=== PATIENT | male | born 1985 | race American Indian/Alaskan Native ===

== ENCOUNTER 2017-07-29 07:28 | Outpatient (CLI) | payer OTHER ==
[2017-07-29] MEDS ORDERED: NACL ONE (08:13)
--- NOTE | 2017-07-29 08:48 | Cat Scan Report ---
CT CERVICAL SPINE WITHOUT CONTRAST INDICATION: Fracture of neck. COMPARISON: None similar. FINDINGS: Noncontrast axial, sagittal and coronal CT reconstructions of the cervical spine demonstrate normal visualized intracranial appearance. Streak artifact from few radiopaque dental materials noted. Assessment of the spinal canal from C7-T1 inferiorly also compromised due to artifact from shoulder soft tissues. Slight left sphenoid sinusitis. Clear imaged mastoid air cells. Symmetric occipital condyles. Normal anterior and posterior arches of C1. Intact craniocervical articulation with normal predental space, prevertebral soft tissues, vertebral body stature, alignment, disc heights and posterior elements except for slight wedging/superior end plate irregularities involving C5 and C6 with mild degenerative spurring anteriorly. No large disc protrusion at any level suspected. Normal included thyroid. Few biapical peripheral bullae. CONCLUSION: No acute cervical spine CT abnormality with various incidental findings, as above. Please correlate. Thank you for the opportunity to participate in this patient's care.
== END 2017-07-29 07:29 | disposition home or self-care (01) ==
LOC: CT 07:28
PROVIDERS: ATTEND Student in an Organized Health Care Education/Training Program
DX: M53.82 Other specified dorsopathies, cervical region (principal); J32.3 Chronic sphenoidal sinusitis
CPT/HCPCS: 72125

== ENCOUNTER 2021-02-21 09:18 | Emergency (ER) | payer SELFPAY ==
[2021-02-21] MEDS ORDERED: predniSONE 20 MG TAB PO ONE (10:21)
[2021-02-21] MEDS ORDERED: IPRATROPIUM/ALBUTEROL SULFATE 3 ML AMPUL.NEB IH ONE (10:21)
--- NOTE | 2021-02-21 10:22 | Emergency Department Report ---
ED General Adult HPI - General Chief complaint: Upper Respiratory Infection Stated complaint: CHEST PAIN, COUGH, FEVER Time Seen by Provider: 02/21/21 10:03 Source: patient Mode of arrival: Ambulatory Limitations: No Limitations - History of Present Illness Initial comments: 89-year-old -[place] male patient presents with complaints of cough x2 days. He states he had a tactile fever at home. He states his cough is productive of yellow sputum and denies any hemoptysis. He states pain in his chest with coughing only, and denies any shortness of breath, loss of taste or smell, headache, or recent known sick contacts. He denies having the COVID-19 vaccination. He admits to being a chronic cigarette smoker. No past medical history per patient. - Related Data Previous Rx's Medication Instructions Recorded Last Taken Type Albuterol Mdi (or & Nicu Only) 2 puff IH QID PRN #1 inhalation 04/01/13 Unknown Rx [ProAir HFA Inhaler] Hycodan 5 ml PO Q4H PRN #120 ml 04/01/13 Unknown Rx Albuterol Mdi (or & Nicu Only) 2 puff IH Q4H PRN #8.5 gram 02/21/21 Unknown Rx [ProAir HFA Inhaler] Azithromycin [Zithromax Z-VASHTI] 0 mg PO DAILY #6 tab 02/21/21 Unknown Rx Prednisone [predniSONE 10 mg 10 mg PO .TAPER #1 tab.ds.pk 02/21/21 Unknown Rx (6-Day Pack, 21 Tabs)] Allergies Allergy/AdvReac Type Severity Reaction Status Date / Time No Known Allergies Allergy Verified 02/21/21 09:23 ED Review of Systems ROS: Stated complaint: CHEST PAIN, COUGH, FEVER Other details as noted in HPI Constitutional: fever (tactile ), malaise. denies: chills, diaphoresis, weakness Respiratory: cough. denies: shortness of breath Cardiovascular: as per HPI Gastrointestinal: denies: nausea, vomiting Skin: denies: rash, change in color Neurological: denies: headache ED Past Medical Hx - Past Medical History Previous Medical History?: No - Surgical History Past Surgical History?: No - Social History Smoking Status: Current Every Day Smoker Substance Use Type: None - Medications Home Medications: Home Medications Medication Instructions Recorded Confirmed Last Taken Type Albuterol Mdi (or & Nicu Only) 2 puff IH QID PRN #1 inhalation 04/01/13 02/21/21 Unknown Rx [ProAir HFA Inhaler] Hycodan 5 ml PO Q4H PRN #120 ml 04/01/13 02/21/21 Unknown Rx Albuterol Mdi (or & Nicu Only) 2 puff IH Q4H PRN #8.5 gram 02/21/21 Unknown Rx [ProAir HFA Inhaler] Azithromycin [Zithromax Z-VASHTI] 0 mg PO DAILY #6 tab 02/21/21 Unknown Rx Prednisone [predniSONE 10 mg 10 mg PO .TAPER #1 tab.ds.pk 02/21/21 Unknown Rx (6-Day Pack, 21 Tabs)] ED Physical Exam - General Limitations: No Limitations General appearance: alert, in no apparent distress - Head Head exam: Present: atraumatic, normocephalic - Eye Eye exam: Present: normal appearance - ENT ENT exam: Present: mucous membranes moist - Respiratory Respiratory exam: Present: wheezes (diffuse), rhonchi. Absent: respiratory distress, rales, stridor, chest wall tenderness, accessory muscle use - Cardiovascular Cardiovascular Exam: Present: regular rate, normal rhythm. Absent: systolic murmur, diastolic murmur, rubs, gallop - Neurological Exam Neurological exam: Present: alert, oriented X3 - Psychiatric Psychiatric exam: Present: normal affect, normal mood - Skin Skin exam: Present: warm, dry, intact, normal color. Absent: rash ED Course Vital Signs 02/21/21 02/21/21 02/21/21 09:32 10:35 11:11 Temperature 98.7 F 98.7 F Pulse Rate 84 Respiratory 18 20 Rate Blood Pressure 131/70 O2 Sat by Pulse 99 96 Oximetry ED Medical Decision Making - Radiology Data Radiology results: report reviewed CHEST 2 VIEWS INDICATION / CLINICAL INFORMATION: cough. COMPARISON: 04/01/2013 FINDINGS: SUPPORT DEVICES: None. HEART / MEDIASTINUM: No significant abnormality. LUNGS / PLEURA: No significant pulmonary or pleural abnormality. No pneumothorax. ADDITIONAL FINDINGS: No significant additional findings. IMPRESSION: 1. No acute findings. - Medical Decision Making 89-year-old -[place] male patient presents with complaints of cough x2 days. He states he had a tactile fever at home. He states his cough is productive of yellow sputum and denies any hemoptysis. He states pain in his chest with coughing only, and denies any shortness of breath, loss of taste or smell, headache, or recent known sick contacts. He denies having the COVID-19 vaccination. He admits to being a chronic cigarette smoker. No past medical history per patient. Diffuse wheezing noted on exam with mild rhonchi. Chest x-ray is normal. Pulse ox is normal and patient is nontachycardic. Wheezing improved with DuoNeb given here in ED. Patient states decreased chest tightness noted post neb treatment. Will treat for acute bronchitis. Recommend follow-up with primary care in 3 to 5 days. Patient encouraged to discontinue smoking. Also recommend outpatient COVID-19 testing. Strict return precautions were discussed in detail with patient who verbalized understanding. Critical care attestation.: If time is entered above; I have spent that time in minutes in the direct care of this critically ill patient, excluding procedure time. ED Disposition Clinical Impression: Acute bronchitis Disposition: HOME / SELF CARE / HOMELESS Is pt being admited?: No Condition: Stable Instructions: Acute Bronchitis (ED), Acute Bronchitis, Adult Prescriptions: Prednisone [predniSONE 10 mg (6-Day Pack, 21 Tabs)] 10 mg PO .TAPER #1 tab.ds.pk Albuterol Mdi (or & Nicu Only) [ProAir HFA Inhaler] 2 puff IH Q4H PRN #8.5 gram PRN Reason: Shortness Of Breath Azithromycin [Zithromax Z-VASHTI] 0 mg PO DAILY #6 tab Referrals: PRIMARY CARE, [Primary Care Provider] - 3-5 Days [facility] [Provider Group] - 3-5 Days Forms: Work/School Release Form(ED)
[2021-02-21] MEDS ORDERED: ALBUTEROL 2.5 MG/3 ML NEBU IH ONE (10:43)
--- NOTE | 2021-02-21 10:43 | XRay Report ---
CHEST 2 VIEWS INDICATION / CLINICAL INFORMATION: cough. COMPARISON: 04/01/2013 FINDINGS: SUPPORT DEVICES: None. HEART / MEDIASTINUM: No significant abnormality. LUNGS / PLEURA: No significant pulmonary or pleural abnormality. No pneumothorax. ADDITIONAL FINDINGS: No significant additional findings. IMPRESSION: 1. No acute findings. Signer Name: Kvng Knutson MD Signed: 02/21/2021 10:39 AM Workstation Name: [id number]
--- NOTE | 2021-02-21 11:58 | Electrocardiograph Report ---
[facility] Test Date: 2021-02-21 Test Time: 09:27:30 Pat Name: ELIZABETH SKAGGS Department: Room: Gender: M Wound Care Coordinator: YI : 1985 Requested By: ED DOC Order Number: [id number] Reading MD: Jose Maria Emerson Measurements Intervals [place] Rate: 75 P: 64 MT: 92 QRS: 83 QRSD: 90 T: 69 QT: 357 QTc: 398 Interpretive Statements Sinus rhythm ST elev, probable normal early repol pattern No previous ECG available for comparison Electronically Signed On 02-21-2021 11:57:49 EDT by Jose Maria Emerson
[2021-02-21 12:01] VITALS: BP 132/69
== END 2021-02-21 12:03 | disposition home or self-care (01) ==
LOC: ED 09:18
DX: J20.9 Acute bronchitis, unspecified (principal); F17.200 Nicotine dependence, unspecified, uncomplicated; Z79.899 Other long term (current) drug therapy
CPT/HCPCS: 71046; 93005; 94640; 99283; J7512

== ENCOUNTER 2021-11-25 19:45 | Emergency (ER) | payer SELFPAY ==
--- NOTE | 2021-11-26 04:11 | Emergency Department Report ---
- General Chief complaint: Skin/Abscess/Foreign Body Stated complaint: FB IN EAR/PAINFUL Time Seen by Provider: 11/26/21 03:52 Source: patient Mode of arrival: Ambulatory Limitations: No Limitations - History of Present Illness -: Gradual Tetanus Up to Date: yes Severity: mild Quality: dull Consistency: constant Improves with: none Worsens with: none - Related Data Previous Rx's Medication Instructions Recorded Last Taken Type Albuterol Mdi (or & Nicu Only) 2 puff IH QID PRN #1 inhalation 04/01/13 Unknown Rx [ProAir HFA Inhaler] Hycodan 5 ml PO Q4H PRN #120 ml 04/01/13 Unknown Rx Albuterol Mdi (or & Nicu Only) 2 puff IH Q4H PRN #8.5 gram 02/21/21 Unknown Rx [ProAir HFA Inhaler] Azithromycin [Zithromax Z-VASHTI] 0 mg PO DAILY #6 tab 02/21/21 Unknown Rx Prednisone [predniSONE 10 mg 10 mg PO .TAPER #1 tab.ds.pk 02/21/21 Unknown Rx (6-Day Pack, 21 Tabs)] Allergies Allergy/AdvReac Type Severity Reaction Status Date / Time No Known Allergies Allergy Verified 02/21/21 09:23 Abscess Boil HPI - HPI Chief Complaint: Skin/Abscess/Foreign Body Stated Complaint: FB IN EAR/PAINFUL Time Seen by Provider: 11/26/21 03:52 Duration: 1 Day Location: Other (left ear. Earbud pushed in ear and he is unable to retreive) Severity: Mild Home Medications: Previous Rx's Medication Instructions Recorded Last Taken Type Albuterol Mdi (or & Nicu Only) 2 puff IH QID PRN #1 inhalation 04/01/13 Unknown Rx [ProAir HFA Inhaler] Hycodan 5 ml PO Q4H PRN #120 ml 04/01/13 Unknown Rx Albuterol Mdi (or & Nicu Only) 2 puff IH Q4H PRN #8.5 gram 02/21/21 Unknown Rx [ProAir HFA Inhaler] Azithromycin [Zithromax Z-VASHTI] 0 mg PO DAILY #6 tab 02/21/21 Unknown Rx Prednisone [predniSONE 10 mg 10 mg PO .TAPER #1 tab.ds.pk 02/21/21 Unknown Rx (6-Day Pack, 21 Tabs)] Allergies/Adverse Reactions: Allergies Allergy/AdvReac Type Severity Reaction Status Date / Time No Known Allergies Allergy Verified 02/21/21 09:23 ED Review of Systems ROS: Stated complaint: FB IN EAR/PAINFUL Other details as noted in HPI Comment: All other systems reviewed and negative ED Past Medical Hx - Social History Smoking Status: Current Every Day Smoker Substance Use Type: None - Medications Home Medications: Home Medications Medication Instructions Recorded Confirmed Last Taken Type Albuterol Mdi (or & Nicu Only) 2 puff IH QID PRN #1 inhalation 04/01/13 02/21/21 Unknown Rx [ProAir HFA Inhaler] Hycodan 5 ml PO Q4H PRN #120 ml 04/01/13 02/21/21 Unknown Rx Albuterol Mdi (or & Nicu Only) 2 puff IH Q4H PRN #8.5 gram 02/21/21 Unknown Rx [ProAir HFA Inhaler] Azithromycin [Zithromax Z-VASHTI] 0 mg PO DAILY #6 tab 02/21/21 Unknown Rx Prednisone [predniSONE 10 mg 10 mg PO .TAPER #1 tab.ds.pk 02/21/21 Unknown Rx (6-Day Pack, 21 Tabs)] ED Physical Exam - General Limitations: No Limitations General appearance: alert, in no apparent distress - Head Head exam: Present: atraumatic, normocephalic - Eye Eye exam: Present: normal appearance, PERRL, EOMI Pupils: Present: normal accommodation - ENT ENT exam: Present: normal exam, mucous membranes moist, TM's normal bilaterally, other (FB to left ear canal with no edema. no mastoid tenderness. no bleeeding or discoloration. ) - Neck Neck exam: Present: normal inspection, full ROM - Respiratory Respiratory exam: Present: normal lung sounds bilaterally. Absent: respiratory distress, wheezes, rales, rhonchi, chest wall tenderness - Cardiovascular Cardiovascular Exam: Present: regular rate, normal rhythm. Absent: systolic murmur, diastolic murmur, rubs, gallop - GI/Abdominal GI/Abdominal exam: Present: soft, normal bowel sounds - Rectal Rectal exam: Present: deferred - Extremities Exam Extremities exam: Present: normal inspection - Back Exam Back exam: Present: normal inspection - Neurological Exam Neurological exam: Present: alert, oriented X3 - Psychiatric Psychiatric exam: Present: normal affect, normal mood - Skin Skin exam: Present: warm, dry, intact, normal color. Absent: rash ED Course Vital Signs 11/25/21 20:50 Temperature 98.6 F Pulse Rate 68 Respiratory 14 Rate Blood Pressure 126/69 [Right] O2 Sat by Pulse 95 Oximetry - Foreign Body Removal Ear Foreign Body Suspected: plastic bead/other plasti Foreign Body Removed: yes Foreign Body Removal Technique: forceps Tympanic Membrane Intact: Yes Patient Tolerated Procedure: well Complications: none Critical care attestation.: If time is entered above; I have spent that time in minutes in the direct care of this critically ill patient, excluding procedure time. ED Disposition Clinical Impression: Foreign body of ear, left, Earache, left Disposition: 01 HOME / SELF CARE / HOMELESS Is pt being admited?: No Does the pt Need Aspirin: No Condition: Stable Instructions: Ear Drops, Adult, Earache, Adult Additional Instructions: the ear buds were removed without complications. Referrals: [facility] [Provider Group] - 3-5 Days
[2021-11-26 04:30] VITALS: BP 126/60
== END 2021-11-26 04:35 | disposition home or self-care (01) ==
LOC: ED 19:45
DX: T16.2XXA Foreign body in left ear, initial encounter (principal); H92.02 Otalgia, left ear; F17.290 Nicotine dependence, other tobacco product, uncomplicated; X58.XXXA Exposure to other specified factors, initial encounter; Y93.89 Activity, other specified; Y92.89 Other specified places as the place of occurrence of the external cause; Y99.8 Other external cause status
CPT/HCPCS: 99282